=== PATIENT | male | born 1955 | race Asian ===

== ENCOUNTER 2020-07-29 09:30 | Emergency (ER) | payer SELFPAY ==
[2020-07-29 10:02] LABS: #Basophils 0.1 thou/uL (0.0-0.2); #Eosinphils 0.2 thou/uL (0.0-0.7); #Lymphocytes 2.4 thou/uL (1.20-3.40); #Monocytes 0.6 thou/uL (0.11-0.59); #Neutrophils 3.9 thou/uL (1.40-6.50); %Basophils 1.3 % (0.0-1.0); %Eosinophils 2.8 % (0.0-10.0); %Lymphocytes 33.2 % (21.0-51.0); %Monocytes 8.6 % (0.0-10.0); Hemoglobin 14.4 g/dL (14.0-18.0); Mean Corpuscular HGB CONC 33.5 g/dL (32.0-36.0); Mean Corpuscular Volume 89.7 fL (78.0-98.0); Mean Platelet Volume 7.6 fL (7.4-10.4); Platelet Count 234 thou/uL (130-400); RBC Distribution Width 11.2 % (11.5-14.5); Red Blood Cell (RBC) Count 4.81 mill/uL (4.70-6.10); White Blood Cell (WBC) Count 7.1 thou/uL (4.8-10.8)
[2020-07-29] MEDS ORDERED: Bacitracin 1 PK ONE (10:13)
[2020-07-29] MEDS ORDERED: Lidocaine 2% w/Epinephrine 1:200K 20 ML VIAL ONE (10:14)
[2020-07-29] MEDS ORDERED: Lidocaine 2% PF 5 ML VIAL ONE (10:15)
[2020-07-29 10:16] LABS: ALT (SGPT) 24 U/L (8-55); AST (SGOT) 19 U/L (5-34); Alkaline Phosphatase 79 U/L (40-110); Anion Gap 13 mmol/L (10-20); BUN (Urea Nitrogen) 19 mg/dL (8.4-25.7); Bilirubin, Total 0.4 mg/dL (0.2-1.2); Calc. Creatinine Clearance 0 mL/min (70-130); Calcium 9.1 mg/dL (7.8-10.44); Carbon Dioxide 22 mmol/L (23-31); Chloride 107 mmol/L (98-107); Globulin 2.8 g/dL (2.4-3.5); Glucose 164 mg/dL (80-115); Potassium 4.2 mmol/L (3.5-5.1); Protein, Total 6.8 g/dL (5.8-8.1); Sodium 138 mmol/L (136-145)
[2020-07-29] MEDS ORDERED: Boostrix 0.5 ML (Tdap) VIAL ONE (10:47)
== END 2020-07-29 11:12 | disposition home or self-care (01) ==
LOC: BURERS 09:30
DX: S61.411A Laceration without foreign body of right hand, initial encounter (principal); I10 Essential (primary) hypertension; W45.8XXA Other foreign body or object entering through skin, initial encounter
CPT/HCPCS: 12002; 36415; 80053; 84484; 85025; 90715; 93005; J2001

== ENCOUNTER 2020-08-08 15:45 | Emergency (ER) | payer SELFPAY | END 2020-08-08 16:26 | disposition home or self-care (01) | LOC: BURERS 15:45 | DX: S61.411D Laceration without foreign body of right hand, subsequent encounter (principal) ==